=== PATIENT | male | born 1985 | race Caucasian/White ===

== ENCOUNTER 2018-02-25 08:14 | Outpatient (RCR) | payer OTHER ==
--- NOTE | 2018-02-25 09:05 | PT INITIAL EVALUATION ---
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 He reports his L ear had felt a bit full at first. REHAB PROBLEM LIST: Difficulty with computer screen work PREVIOUS MEDICAL HISTORY: HTN. No CHI, virus in the last 6 weeks, no ear fullness or tinnitus. 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 OBJECTIVE: Posture: Midline head and trunk, steady posture, eyes open and closed. Tandem stand eyes closed steady. Palpation: Even tone SCM's. Special Tests: Negative Beatrice-Hallpike and roll tests, L and R. Head back position supine negative for symptoms or nystagmus while seated head back creates mild symptoms, no dizziness. VOR x1 creates mild symptoms, no nystagmus, negative head thrust for symptoms or nystagmus. Gait/Balance: WNL. ASSESSMENT: Ernie Escalante presents with signs and symptoms of vestibular neuritis, probably viral as he doesn't have complaints of bacterial infect, symptoms were worse at first and are tapering off. I did instruct him in a brief HEP for VOR x1 retraining. As this is viral, he doesn't need PT. I'll close his case today. Thank you. Short Term Goals Ernie is instructed in a vestibular Ocular reflex HEP. met Patient's Goals Find out if it's vertigo. Met (it's not vertigo) PLAN: Patient to be seen for this evaluation and discharged with HEP. Thank you for this referral. If you have any questions, comments, or concerns about this report or plan, please contact me at . MTDD
== END 2018-02-25 11:11 | disposition home or self-care (01) ==
LOC: PT 08:14
PROVIDERS: ATTEND Chiropractor
DX: R42 Dizziness and giddiness (principal); I10 Essential (primary) hypertension
CPT/HCPCS: 97161